=== PATIENT | female | born 1955 | race Caucasian/White ===

== ENCOUNTER 2020-08-13 17:36 | Emergency (ER) | payer OTHER, BC ==
[~2020-08-13] VITALS: Ht 165.1 cm; Wt 49.9 kg
[~2020-08-13 17:36] MED LIST: CEPH500 PO; HYDACE5 PO; LORA1 PO
== END 2020-08-13 20:08 | disposition home or self-care (01) ==
LOC: ER 17:36
DX: S01.01XA Laceration without foreign body of scalp, initial encounter (principal); S46.912A Strain of unspecified muscle, fascia and tendon at shoulder and upper arm level, left arm, initial encounter; Z23 Encounter for immunization; W01.198A Fall on same level from slipping, tripping and stumbling with subsequent striking against other object, initial encounter; Y93.89 Activity, other specified
CPT/HCPCS: 12005; 70450; 73030; 90471; 90714; 99284-25; A9270

== ENCOUNTER 2022-06-07 21:11 | Emergency (ER) | payer OTHER ==
[~2022-06-07] VITALS: Ht 167.6 cm; Wt 45.4 kg
== END 2022-06-07 23:39 | disposition home or self-care (01) ==
LOC: ER 21:11
DX: S00.81XA Abrasion of other part of head, initial encounter (principal); W01.0XXA Fall on same level from slipping, tripping and stumbling without subsequent striking against object, initial encounter; F10.129 Alcohol abuse with intoxication, unspecified; J40 Bronchitis, not specified as acute or chronic; F17.210 Nicotine dependence, cigarettes, uncomplicated
CPT/HCPCS: 70450; 71045; 94644; 94664

== ENCOUNTER 2022-11-23 08:42 | Day surgery (SDC) | payer OTHER ==
[2022-11-23] VITALS (13 sets, daily range): BP systolic 103–132; BP diastolic 64–103
[~2022-11-23] VITALS: Ht 165.1 cm; Wt 47.2 kg
--- NOTE | 2022-11-23 11:00 | NUR ---
History, Chart, Medications and Allergies reviewed before start of procedure. Patient confirms NPO status and agrees with scheduled surgery. Inspiratory wheezes auscultated t/o lungs. Patient denies SOB and states "I'm always wheezing." Will report this to Dr. Sheriff.
[2022-11-23] MEDS ORDERED: ALBU2.5V5 INH (11:02)
--- NOTE | 2022-11-23 11:13 | NUR ---
UNABLE TO WIPE SURGERY SITE WITH CHLORHEXIDINE DUE TO CAST. LLE ELEVATED ON PILLOW FOR COMFORT.
--- NOTE | 2022-11-23 12:04 | NUR ---
HINA COVARRUBIAS, AT BEDSIDE USING CAST CUTTER ON PATIENT'S CAST.
--- NOTE | 2022-11-23 15:59 | NUR ---
Patient up to Ambulate independently. Gait steady. Marj Paws warming gown applied. Discharge instructions reviewed with patient. Patient verbalizes understanding. Copy given to patient to take home.Lungs clear T/O to Auscultation. Patient States Post-Procedure ride home has been arranged. Discharged via wheelchair to private car for ride home.
== END 2022-11-23 16:02 | disposition home or self-care (01) ==
LOC: ORSCMMR 08:42 → ORD 11:00 → ORSCMMR 11:00
PROVIDERS: Orthopaedic Surgery
PROC: 0PSJ04Z Reposition Left Radius with Internal Fixation Device, Open Approach (ICD-10-PCS; principal; 2022-11-23 11:00)
DX: S52.572A Other intraarticular fracture of lower end of left radius, initial encounter for closed fracture (principal); F17.210 Nicotine dependence, cigarettes, uncomplicated; J44.9 Chronic obstructive pulmonary disease, unspecified; Z79.899 Other long term (current) drug therapy
CPT/HCPCS: A9270; C1713; J0690; J1100; J1885; J2250; J2405; J2704; J3010; J7120

== ENCOUNTER → 2024-07-11 | Outpatient (CLI) | payer OTHER ==
[~2024-07-11] MED LIST changes: +ALBU2.5V5 INH
[2024-07-11 09:26] LABS: BASOPHILS ABSOLUTE AUTO 0.04 K/mm3 (0.00-0.23); BASOPHILS PERCENT AUTO 0 % (0-2); EOSINOPHILS ABSOLUTE AUTO 0.12 K/mm3 (0.00-0.68); EOSINOPHILS PERCENT AUTO 1 % (0-6); Hematocrit 29.5 % (33.0-51.0); IMMATURE GRAN ABSOLUTE AUTO 0.09 K/mm3 (0.00-0.10); IMMATURE GRAN PERCENT AUTO 1 % (0-1); LYMPHOCYTES ABSOLUTE AUTO 1.82 K/mm3 (0.84-5.20); LYMPHOCYTES PERCENT AUTO 14 % (21-46); MONOCYTES ABSOLUTE AUTO 0.56 K/mm3 (0.16-1.47); MONOCYTES PERCENT AUTO 4 % (4-13); Mean Corpuscular HGB 31.6 pg (26.0-34.0); Mean Corpuscular HGB Conc 33.9 g/dL (31.5-36.5); Mean Corpuscular Volume 93 fL (80-100); Mean Platelet Volume 9.9 fL (9.1-12.4); NEUTROPHILS ABSOLUTE AUTO 10.51 K/mm3 (1.96-9.15); NEUTROPHILS PERCENT AUTO 80 % (41-73); NRBC ABSOLUTE 0.02 K/mm3 (0.00-0.02); NRBC Auto 0.2 /100 WBC (0.0-0.2); Platelet Count 355 K/mm3 (150-400); RDW Coefficient Variation 15.4 % (11.7-14.2); RDW Standard Deviation 51.9 fL (35.1-46.3); Red Blood Cell Count 3.16 M/mm3 (3.80-5.20); White Blood Cell Count 13.14 K/mm3 (4.00-11.30)
[2024-07-11 09:42] LABS: Albumin, Blood 1.6 g/dL (3.4-5.0); Albumin/Globulin Ratio 0.4 (0.8-1.8); Bilirubin, Total 1.9 mg/dL (0.1-1.0); Bun/Creatinine Ratio 9.5 (12.0-20.0); Creatinine, Blood 0.84 mg/dL (0.40-1.00); Globulin, Blood 4.2 g/dL (2.2-4.0); Magnesium, Blood 1.7 mg/dL (1.6-2.4); Phosphorus, Blood 3.2 mg/dL (2.5-4.9); Potassium, Blood 3.6 mmol/L (3.5-5.5); Total Protein, Blood 5.8 g/dL (6.4-8.2)
== END ==
LOC: LAB 09:22 → LAB SHORT 09:22
PROVIDERS: Family Medicine
DX: R00.0 Tachycardia, unspecified (principal); R21 Rash and other nonspecific skin eruption; R53.83 Other fatigue; N39.0 Urinary tract infection, site not specified
CPT/HCPCS: 80053; 83735; 84100; 84443; 84484; 85025; 87086

== ENCOUNTER 2024-10-09 15:48 | Emergency (ER) | payer OTHER ==
[~2024-10-09] VITALS: Ht 165.1 cm; Wt 37.2 kg
[2024-10-09] MEDS ORDERED: NS 1,000 ML IV SCH (16:30)
[2024-10-09 17:08] LABS: BASOPHILS ABSOLUTE AUTO 0.01 K/mm3 (0.00-0.23); BASOPHILS PERCENT AUTO 0 % (0-2); EOSINOPHILS ABSOLUTE AUTO 0.03 K/mm3 (0.00-0.68); EOSINOPHILS PERCENT AUTO 1 % (0-6); Hematocrit 29.9 % (33.0-51.0); Hemoglobin 10.3 g/dL (11.5-16.0); IMMATURE GRAN ABSOLUTE AUTO 0.02 K/mm3 (0.00-0.10); IMMATURE GRAN PERCENT AUTO 0 % (0-1); LYMPHOCYTES ABSOLUTE AUTO 2.12 K/mm3 (0.84-5.20); LYMPHOCYTES PERCENT AUTO 37 % (21-46); MONOCYTES ABSOLUTE AUTO 0.55 K/mm3 (0.16-1.47); MONOCYTES PERCENT AUTO 10 % (4-13); Mean Corpuscular HGB 30.9 pg (26.0-34.0); Mean Corpuscular HGB Conc 34.4 g/dL (31.5-36.5); Mean Corpuscular Volume 90 fL (80-100); Mean Platelet Volume 9.5 fL (9.1-12.4); NEUTROPHILS ABSOLUTE AUTO 2.95 K/mm3 (1.96-9.15); NEUTROPHILS PERCENT AUTO 52 % (41-73); Platelet Count 343 K/mm3 (150-400); RDW Coefficient Variation 16.5 % (11.7-14.2); RDW Standard Deviation 53.9 fL (35.1-46.3); Red Blood Cell Count 3.33 M/mm3 (3.80-5.20); White Blood Cell Count 5.68 K/mm3 (4.00-11.30)
[2024-10-09 17:42] LABS: Albumin, Blood 1.8 g/dL (3.4-5.0); Albumin/Globulin Ratio 0.5 (0.8-1.8); Bilirubin, Total 1.8 mg/dL (0.1-1.0); Bun/Creatinine Ratio 7.9 (12.0-20.0); Calcium, Blood 7.5 mg/dL (8.5-10.1); Creatinine, Blood 0.63 mg/dL (0.40-1.00); Globulin, Blood 3.7 g/dL (2.2-4.0); Potassium, Blood 2.2 mmol/L (3.5-5.5); Total Protein, Blood 5.5 g/dL (6.4-8.2)
[2024-10-09 17:43] LABS: Magnesium, Blood 1.6 mg/dL (1.6-2.4); Phosphorus, Blood 2.9 mg/dL (2.5-4.9)
[2024-10-09] MEDS ORDERED: Potassium Chloride 20 MEQ TabCR PO ONE (17:50)
[2024-10-09] MEDS ORDERED: Potassium Acetate 20 MEQ in NS 100 ML IV SCH (17:50)
[2024-10-09] MEDS ORDERED: Magnesium Oxide 400 MG Tab PO ONE (17:50)
[2024-10-09] MEDS ORDERED: K-Dur10 MEQ (17:54)
[2024-10-09] MEDS ORDERED: PRAMIPEXOLE0.125 M1 PO (17:54)
[2024-10-09] MEDS ORDERED: Cipro500 MG PO (17:54)
[2024-10-09] MEDS ORDERED: ONDANSETRON ODT16 MG PO (17:55)
[2024-10-09] MEDS ORDERED: TRAM50 PO (17:55)
[2024-10-09] MEDS ORDERED: Atarax10 MG PO (17:55)
[2024-10-09] MEDS ORDERED: OMEP20ER PO (17:58)
[2024-10-09] MEDS ORDERED: Potassium Chloride 40 MEQ in NS 250 ML IV STA (18:10)
[2024-10-09] MEDS ORDERED: TraMADol HCl 50 MG Tab PO ONE (18:55)
[2024-10-09 23:00] VITALS: BP 97/56
[2024-10-09 23:22] LABS: Bun/Creatinine Ratio 9.5 (12.0-20.0); Calcium, Blood 6.7 mg/dL (8.5-10.1); Creatinine, Blood 0.53 mg/dL (0.40-1.00); Potassium, Blood 3.7 mmol/L (3.5-5.5)
== END 2024-10-09 23:56 | disposition home or self-care (01) ==
LOC: ER 15:48
PROVIDERS: Emergency Medicine; Physician Assistant
DX: E87.6 Hypokalemia (principal); J44.9 Chronic obstructive pulmonary disease, unspecified; F17.210 Nicotine dependence, cigarettes, uncomplicated; R74.8 Abnormal levels of other serum enzymes
CPT/HCPCS: 36415; 80048; 80053; 80074; 82103; 82390; 83735; 84100; 85025; 86015; 86038; 86256; 86381; 93005; 93010; 96365; 96366; 99285-25; A9270; J3480; J7030; J7050

== ENCOUNTER 2024-10-12 08:00 | Day surgery (SDC) | payer OTHER ==
[~2024-10-12] VITALS: Ht 165.1 cm; Wt 37.2 kg
[~2024-10-12 08:00] MED LIST changes: +Atarax10 MG PO; +Cipro500 MG PO; +K-Dur10 MEQ; +Lactated Ringer's 1,000 ML IV ONE; +OMEP20ER PO; +ONDANSETRON ODT16 MG PO; +PRAMIPEXOLE0.125 M1 PO; +TRAM50 PO
[2024-10-12] MEDS ORDERED: propofoL 50 ML IV ONE (08:22)
[2024-10-12] MEDS ORDERED: Lidocaine HCl 4% 5 ML SDA ONE (08:22)
[2024-10-12] MEDS ORDERED: MAGCIT300 (08:39)
[2024-10-12] MEDS ORDERED: Lactated Ringer's 1,000 ML IV ONE (09:10)
[2024-10-12 10:54] VITALS: BP 128/76
== END 2024-10-12 11:02 | disposition home or self-care (01) ==
LOC: ORSCSDS 08:00
PROVIDERS: Internal Medicine Gastroenterology
PROC: 0D757ZZ Dilation of Esophagus, Via Natural or Artificial Opening (ICD-10-PCS; principal; 2024-10-12 09:30)
PROC: 0DB38ZX Excision of Lower Esophagus, Via Natural or Artificial Opening Endoscopic, Diagnostic (ICD-10-PCS; principal; 2024-10-12 09:30)
PROC: 0DB68ZX Excision of Stomach, Via Natural or Artificial Opening Endoscopic, Diagnostic (ICD-10-PCS; principal; 2024-10-12 09:30)
DX: R13.10 Dysphagia, unspecified (principal); B96.81 Helicobacter pylori [H. pylori] as the cause of diseases classified elsewhere; J44.9 Chronic obstructive pulmonary disease, unspecified; K22.2 Esophageal obstruction; F17.210 Nicotine dependence, cigarettes, uncomplicated; Z79.899 Other long term (current) drug therapy
CPT/HCPCS: 88305; 88342; J2003; J2704; J7120

== ENCOUNTER 2024-11-01 12:49 | Day surgery (SDC) | payer OTHER ==
[~2024-11-01] VITALS: Ht 165.1 cm; Wt 36.7 kg
[~2024-11-01 12:49] MED LIST changes: +MAGCIT300
[2024-11-01] MEDS ORDERED: METR500 (13:31)
[2024-11-01] MEDS ORDERED: BISMUTH SUBSAL (13:31)
[2024-11-01] MEDS ORDERED: Tetracycline H500 MG (13:32)
[2024-11-01] MEDS ORDERED: OMEP20ER (13:33)
[2024-11-01] MEDS ORDERED: Lactated Ringer's 1,000 ML IV ONE (14:57)
[2024-11-01] MEDS ORDERED: Phenylephrine HCl 10mg/ml 1 ml Vial ONE (15:25)
[2024-11-01] MEDS ORDERED: propofoL 50 ML IV ONE ×2 (15:26→15:49)
[2024-11-01 16:58] VITALS: BP 94/70
== END 2024-11-01 16:55 | disposition home or self-care (01) ==
LOC: ORSCSDS 12:49
PROVIDERS: Internal Medicine Gastroenterology
PROC: 0DBL8ZX Excision of Transverse Colon, Via Natural or Artificial Opening Endoscopic, Diagnostic (ICD-10-PCS; principal; 2024-11-01 15:15)
PROC: 0DBN8ZX Excision of Sigmoid Colon, Via Natural or Artificial Opening Endoscopic, Diagnostic (ICD-10-PCS; principal; 2024-11-01 15:15)
PROC: 0DBH8ZX Excision of Cecum, Via Natural or Artificial Opening Endoscopic, Diagnostic (ICD-10-PCS; principal; 2024-11-01 15:15)
PROC: 0DBM8ZX Excision of Descending Colon, Via Natural or Artificial Opening Endoscopic, Diagnostic (ICD-10-PCS; principal; 2024-11-01 15:15)
DX: D50.9 Iron deficiency anemia, unspecified (principal); R63.4 Abnormal weight loss; D12.3 Benign neoplasm of transverse colon; D12.4 Benign neoplasm of descending colon; D12.5 Benign neoplasm of sigmoid colon; K64.4 Residual hemorrhoidal skin tags; D37.4 Neoplasm of uncertain behavior of colon; J44.9 Chronic obstructive pulmonary disease, unspecified; F17.210 Nicotine dependence, cigarettes, uncomplicated; K21.9 Gastro-esophageal reflux disease without esophagitis; Z79.899 Other long term (current) drug therapy
CPT/HCPCS: 88305; J2371; J2704; J7120

== ENCOUNTER 2024-11-06 14:51 | Emergency (ER) | payer OTHER ==
[~2024-11-06] VITALS: Ht 165.1 cm; Wt 36.3 kg
[~2024-11-06 14:51] MED LIST changes: +BISMUTH SUBSAL; -Lactated Ringer's 1,000 ML IV ONE; +METR500; +OMEP20ER; +Tetracycline H500 MG
[2024-11-06] MEDS ORDERED: NS 1,000 ML IV SCH (15:15)
[2024-11-06 15:28] LABS: BASOPHILS PERCENT AUTO 0 % (0-2); EOSINOPHILS PERCENT AUTO 0 % (0-6); Hematocrit 27.2 % (33.0-51.0); Hemoglobin 9.2 g/dL (11.5-16.0); IMMATURE GRAN ABSOLUTE AUTO 0.02 K/mm3 (0.00-0.10); IMMATURE GRAN PERCENT AUTO 0 % (0-1); LYMPHOCYTES ABSOLUTE AUTO 0.83 K/mm3 (0.84-5.20); LYMPHOCYTES PERCENT AUTO 18 % (21-46); MONOCYTES ABSOLUTE AUTO 0.38 K/mm3 (0.16-1.47); MONOCYTES PERCENT AUTO 8 % (4-13); Mean Corpuscular HGB 31.3 pg (26.0-34.0); Mean Corpuscular HGB Conc 33.8 g/dL (31.5-36.5); Mean Corpuscular Volume 93 fL (80-100); Mean Platelet Volume 12.4 fL (9.1-12.4); NEUTROPHILS PERCENT AUTO 74 % (41-73); NRBC ABSOLUTE 0.04 K/mm3 (0.00-0.02); NRBC Auto 0.9 /100 WBC (0.0-0.2); Platelet Count 133 K/mm3 (150-400); RDW Coefficient Variation 17.3 % (11.7-14.2); RDW Standard Deviation 58.1 fL (35.1-46.3); Red Blood Cell Count 2.94 M/mm3 (3.80-5.20); White Blood Cell Count 4.63 K/mm3 (4.00-11.30)
[2024-11-06 16:16] LABS: Source, Urine Straight Cath
[2024-11-06 16:22] LABS: Albumin, Blood 1.8 g/dL (3.4-5.0); Albumin/Globulin Ratio 0.6 (0.8-1.8); Bilirubin, Total 2.2 mg/dL (0.1-1.0); Bun/Creatinine Ratio 12.1 (12.0-20.0); Calcium, Blood 8.5 mg/dL (8.5-10.1); Creatinine, Blood 0.5 mg/dL (0.40-1.00); Globulin, Blood 3.2 g/dL (2.2-4.0); Potassium, Blood 3.2 mmol/L (3.5-5.5)
[2024-11-06 16:23] LABS: Appearance, Urine Clear (Clear); Bilirubin, Urine Neg (Neg); Blood, Urine 2+ (Neg); Color, Urine Amber (P-Yellow); Glucose Qualitative, Urine 4+ (Neg); Ketones, Urine Neg (Neg); Leukocyte Esterase, Urine 1+ (Neg); Nitrite, Urine Neg (Neg); Protein, Urine 1+ (Neg); Specific Gravity, Urine 1.015 (1.003-1.022); Urobilinogen, Urine NORM (Normal)
[2024-11-06 16:40] LABS: Amorphous Light (0-Heavy); Bacteria Few /hpf; Squamous Epithelial Cells Few /hpf (Few)
[2024-11-06 16:41] LABS: Calcium Oxalate Crystals Rare /hpf; Transitional Epithelial Cells Rare /hpf (0-Rare)
[2024-11-06 17:01] VITALS: BP 99/72
== END 2024-11-06 18:40 | disposition home or self-care (01) ==
LOC: ER 14:51
PROVIDERS: Emergency Medicine
DX: R44.1 Visual hallucinations (principal); E86.0 Dehydration; J44.9 Chronic obstructive pulmonary disease, unspecified; F17.210 Nicotine dependence, cigarettes, uncomplicated; Z79.899 Other long term (current) drug therapy
CPT/HCPCS: 70450; 80053; 81001; 85025; 87086; 93005; 93010; 96360; 99285-25; J7030; P9612

== ENCOUNTER 2024-11-08 14:15 | Observation (INO) | payer OTHER ==
[~2024-11-08] VITALS: Ht 165.1 cm; Wt 45.4 kg
[2024-11-08 15:39] LABS: BASOPHILS PERCENT AUTO 0 % (0-2); EOSINOPHILS PERCENT AUTO 0 % (0-6); Hematocrit 26.3 % (33.0-51.0); Hemoglobin 9.2 g/dL (11.5-16.0); IMMATURE GRAN ABSOLUTE AUTO 0.01 K/mm3 (0.00-0.10); IMMATURE GRAN PERCENT AUTO 0 % (0-1); LYMPHOCYTES ABSOLUTE AUTO 0.81 K/mm3 (0.84-5.20); LYMPHOCYTES PERCENT AUTO 18 % (21-46); MONOCYTES PERCENT AUTO 11 % (4-13); Mean Corpuscular HGB 32.2 pg (26.0-34.0); Mean Corpuscular Volume 92 fL (80-100); Mean Platelet Volume 12.1 fL (9.1-12.4); NEUTROPHILS ABSOLUTE AUTO 3.15 K/mm3 (1.96-9.15); NEUTROPHILS PERCENT AUTO 71 % (41-73); NRBC ABSOLUTE 0.05 K/mm3 (0.00-0.02); NRBC Auto 1.1 /100 WBC (0.0-0.2); Platelet Count 131 K/mm3 (150-400); RDW Coefficient Variation 17.7 % (11.7-14.2); Red Blood Cell Count 2.86 M/mm3 (3.80-5.20); White Blood Cell Count 4.47 K/mm3 (4.00-11.30)
[2024-11-08 15:55] LABS: Albumin, Blood 1.7 g/dL (3.4-5.0); Albumin/Globulin Ratio 0.5 (0.8-1.8); Bilirubin, Total 2.4 mg/dL (0.1-1.0); Bun/Creatinine Ratio 14.4 (12.0-20.0); Calcium, Blood 8.4 mg/dL (8.5-10.1); Creatinine, Blood 0.62 mg/dL (0.40-1.00); Globulin, Blood 3.2 g/dL (2.2-4.0); Total Protein, Blood 4.9 g/dL (6.4-8.2)
[2024-11-08 17:49] LABS: Source, Urine Clean Catch
[2024-11-08 17:59] LABS: Blood, Urine 1+ (Neg); Color, Urine Brown (P-Yellow); Glucose Qualitative, Urine Neg (Neg); Ketones, Urine 1+ (Neg); Leukocyte Esterase, Urine 1+ (Neg); Nitrite, Urine Pos (Neg); Protein, Urine 2+ (Neg); Specific Gravity, Urine 1.025 (1.003-1.022); Urobilinogen, Urine 1+ (Normal)
[2024-11-08] MEDS ORDERED: Morphine Sulfate 4 MG/1 ML Injection IV PRN (18:05)
[2024-11-08] MEDS ORDERED: Lactated Ringer's 1,000 ML IV SCH (18:05)
[2024-11-08] MEDS ORDERED: Ondansetron HCl 2 MG / ML 2ML Vial IV PRN (18:05)
[2024-11-08] MEDS ORDERED: Potassium Chl 20MEQ/Water100ML 100 ML IV SCH (18:10)
[2024-11-08] MEDS ORDERED: Magnesium Sulf 2 GM/Water 50ML 50 ML IV ONE (18:10)
[2024-11-08 18:15] LABS: Appearance, Urine Hazy (Clear); Bilirubin, Urine 2+ (Neg)
[2024-11-08 18:16] LABS: Bacteria Mod /hpf; Calcium Oxalate Crystals Many /hpf; Red Blood Cells, Urine 0-2 /hpf (0-2); Squamous Epithelial Cells Few /hpf (Few); Yeast/Fungi Urine Mod /hpf
[2024-11-08] MEDS ORDERED: NS 1,000 ML IV ONE (19:00)
[2024-11-08] MEDS ORDERED: Morphine Sulfate 4 MG/1 ML Injection IV ONE (19:00)
[2024-11-08] MEDS ORDERED: Heparin Sodium,Porcine 5,000 UNIT/0.5 ML SDV SC SCH (21:00)
[2024-11-08 22:55] VITALS: BP 92/67
[2024-11-09] MEDS ORDERED: CefTRIAXone Sodium 1,000 MG in NS 100 ML IV SCH (00:10)
[2024-11-09 04:31] VITALS: BP 92/65
--- NOTE | 2024-11-09 04:45 | NUR ---
SHIFT SUMMARY ADMITTED THIS SHIFT FOR TOXIC METABOLIC ENCEPHALOPATHY. FULL CODE. IV ANTIB RX ARE SCHEDULED. SHE DOES HAVE A UTI. SHE IS DEHYDRATED, IV FLUIDS INFUSING AND ELECTROLYTES GIVEN. TELEMETRY: NSR @ [address], TEA COLORED URINE. SHE IS A&O TO SELF, POSSIBLY FAMILY. SHE SPEAKS A GARBLED WORD OR TWO BUT SHE IS CONFUSED & HALLUCINATING. PLAN IS FOR AN MRI OF THE HEAD. SHE IS QUITE FRAIL AND FRAGILE IN APPEARANCE. SEVERE WEAKNESS NOTED. SHE IS ON BEDREST. PALLIATIVE CARE IS CONSULTED. HX: ETOH ABUSE, FATTY LIVER. FAMILY IS AT BEDSIDE.
[2024-11-09] MEDS ORDERED: Pantoprazole Sodium 40 MG Injection IV SCH (06:00)
[2024-11-09 07:51] VITALS: BP 92/63
[2024-11-09] MEDS ORDERED: Potassium Chl 20MEQ/Water100ML 100 ML IV SCH (08:00)
[2024-11-09] MEDS ORDERED: Thiamine HCl 100 MG in NS 50 ML IV SCH (09:00)
[2024-11-09 09:21] LABS: BASOPHILS PERCENT AUTO 0 % (0-2); EOSINOPHILS ABSOLUTE AUTO 0.01 K/mm3 (0.00-0.68); EOSINOPHILS PERCENT AUTO 0 % (0-6); Hematocrit 28.3 % (33.0-51.0); Hemoglobin 9.5 g/dL (11.5-16.0); IMMATURE GRAN ABSOLUTE AUTO 0.02 K/mm3 (0.00-0.10); IMMATURE GRAN PERCENT AUTO 0 % (0-1); LYMPHOCYTES ABSOLUTE AUTO 1.26 K/mm3 (0.84-5.20); LYMPHOCYTES PERCENT AUTO 26 % (21-46); MONOCYTES ABSOLUTE AUTO 0.62 K/mm3 (0.16-1.47); MONOCYTES PERCENT AUTO 13 % (4-13); Mean Corpuscular HGB 31.8 pg (26.0-34.0); Mean Corpuscular HGB Conc 33.6 g/dL (31.5-36.5); Mean Corpuscular Volume 95 fL (80-100); Mean Platelet Volume 12.4 fL (9.1-12.4); NEUTROPHILS PERCENT AUTO 61 % (41-73); NRBC ABSOLUTE 0.03 K/mm3 (0.00-0.02); NRBC Auto 0.6 /100 WBC (0.0-0.2); Platelet Count 118 K/mm3 (150-400); RDW Coefficient Variation 18.3 % (11.7-14.2); RDW Standard Deviation 60.7 fL (35.1-46.3); Red Blood Cell Count 2.99 M/mm3 (3.80-5.20); White Blood Cell Count 4.91 K/mm3 (4.00-11.30)
[2024-11-09 09:43] LABS: Albumin, Blood 1.8 g/dL (3.4-5.0); Albumin/Globulin Ratio 0.6 (0.8-1.8); Bun/Creatinine Ratio 14.9 (12.0-20.0); Calcium, Blood 8.6 mg/dL (8.5-10.1); Creatinine, Blood 0.61 mg/dL (0.40-1.00); Globulin, Blood 3.2 g/dL (2.2-4.0); Potassium, Blood 3.6 mmol/L (3.5-5.5)
[2024-11-09 09:46] LABS: Magnesium, Blood 2.4 mg/dL (1.6-2.4); Percent Saturation 17.3 % (15.0-50.0)
[2024-11-09 12:18] VITALS: BP 79/58
[2024-11-09] MEDS ORDERED: LORazepam 1 MG Tab PO PRN (13:00)
[2024-11-09] MEDS ORDERED: Morphine Sulfate 20 MG/1ML 1 ML Oral Syringe SL PRN (13:00)
[2024-11-09] MEDS ORDERED: Scopolamine Hydrobromide Patch TOP PRN (13:05)
[2024-11-09] MEDS ORDERED: Atropine Sulfate 1% Opth Soln 2ML BTL SL PRN (13:05)
[2024-11-09] MEDS ORDERED: Haloperidol Lactate 2 MG / ML 15ML BTL PO PRN (13:05)
[2024-11-09] MEDS ORDERED: Acetaminophen 160MG / 5ML 10.15 UDC PO PRN (13:05)
[2024-11-09] MEDS ORDERED: Acetaminophen 650 MG Supp PR PRN (13:05)
[2024-11-09] MEDS ORDERED: Promethazine HCl 25 MG Tab PO PRN (13:05)
--- NOTE | 2024-11-09 13:13 | NUR ---
PALLIATIVE CARE NOTE: MET WITH FAMILY, SPOUSE DON AND SOFIE IN ROOM. PT IS IN BED, SHE IS MOANING OFF AND ON. PT ABLE TO ABSWER SOME QUESTIONS AND OTHERS SHE IS NOT. SHE DOES STATE MULTIPLE TIMES "PLEASE JUST LET ME GO HOME". PT IS SEVERELY CACHECTIC AND FRAIL IN APPEARANCE. SHE HAS SORES ON HER ARM. HER SKIN APPEARS VERY DRY. PT HAS LOST HER IV AND SHE HAS SBP IN 70'S. DISCUSSED CONCERNS PT MAY NEED CPR WITH FAMILY. DISCUSSED RISKS VS BENEFITS OF CPR INCLUDING HIGH RISK OF FRACTURED RIBS. SPOUSE STATES "I DON'T WANT THAT TO HAPPEN TO HER". SOFIE STATED HER MOM DID NOT WANT CPR IN THE PAST. DISCUSSED DNR STATUS AND FAMILY AGREE TO MAKE DNR. DISCUSSED PEG TUBE VS NG TUBE. SPOUSE STATED HIS WOULD NOT WANT A PERMANENT FEEDING TUBE OR BE ON A VENTILATOR IF SHE COULD NOT COME OFF OF IT. DISCUSSED AT THIS TIME COMFORT MEASURES VS FULL TREATMENT. SPOUSE IS AGREEABLE TO COMFORT CARE WITH GOAL TO TAKE HIS HOME WITH HOSPICE. SPOKE TO DR. ALEXANDER REGARDING ABOVE CONVERSATION. HE IS AGREEABLE TO COMFORT CARE. PRIMARY RN AWARE, UPDATED CM. DR. ALEXANDER TO PLACE COMFORT CARE ORDERS/DNR STATUS.
--- NOTE | 2024-11-09 20:09 | NUR ---
SHIFT SUMMARY- PT TRANSITIONED TO CC. PT MOANING AND UNCOMFORTABLE BUT CEARLY SAYS NO TO OFFERED MEDICATION. SHE TOOK ONE DOSE OF PAIN MEDICATION EARLIER IN THE DAY. AT THE END OF THE SHIFT THE PT WAS VERY RESTLESS AND THE DAUGHTER REQUESTED MEDICATION. PT MEDICATED WITH ATIVAN AND ROXINOL, PER THE REQUEST OF FAMILY AND RN DETERMINED NEED, PT WILLINGLY TOOK THE MEDICATION WHILE SAYING NO, PT SAYS NO TO ANYTHING STAFF SAY. SHE MAY NEED A LARGER DOSE THAN WHAT WAS USED, SOME IMPROVEMENT WAS SEEN. REPORT WAS COMPLETED AT THE BEDSIDE WITH THE NIGHT RN, SHE IS AWARE THE PT MAY NEED MORE ATIVAN AND ROXINOL.
--- NOTE | 2024-11-10 05:50 | NUR ---
SHIFT SUMMARY PT ON COMFORT CARE. AT BEDSIDE THROUGHOUT THE SHIFT WITH MULTIPLE OTHER FAMILY MEMBERS COMING TO VISIT DURING THE EVENING. PT MEDICATED WITH ROXANOL AND ATIVAN PER EMAR. PT MOSTLY RESTING WITH EYES CLOSED, MOANS ON OCCASSIONS. MEDICATED FOR INCREASED AGITATED ACTIVITY AND FACE PAIN SCALE. PT'S FAMILY ASSISTING WITH PHYSICAL CARE OF PT. PT BEGINNING TO HAVE SOME APNIC EPISODES. PLAN TO TRANSITION TO HOME HOSPICE TODAY.
[2024-11-10] MEDS ORDERED: Pramipexole DI-HCL 0.125 MG Tab PO SCH (09:00)
[2024-11-10] MEDS ORDERED: MORP20L SL (09:56)
[2024-11-10] MEDS ORDERED: ACET120S PR (09:59)
[2024-11-10] MEDS ORDERED: ACETAMINOP160 MG/51 PO (10:01)
[2024-11-10] MEDS ORDERED: ATROPINE SULFATE2 M1 SL (10:01)
[2024-11-10] MEDS ORDERED: HALOPERIDOL2 MG/1 M1 PO (10:02)
[2024-11-10] MEDS ORDERED: LORA1 PO (10:03)
[2024-11-10] MEDS ORDERED: PROM25 PO (10:03)
[2024-11-10] MEDS ORDERED: TRANSDERM-SCOP1 EA13 TD (10:04)
--- NOTE | 2024-11-10 12:28 | NUR ---
PT DISCHARGED HOME TO HOSPICE WITH FAMILY. PT MEDICATED PER EMAR PRIOR TO DC, EDUCATION PROVIDED TO FAMILY, ALL BELONGINGS WITH PT FAMILY.
== END 2024-11-10 11:53 | disposition hospice, home (50) ==
LOC: ER 14:15 → ERHOLD 14:16 → MEDS 14:16 → ENPENDDIS 11-10 11:36 → MEDS 11-10 11:53
PROVIDERS: Student in an Organized Health Care Education/Training Program; ADMIT Internal Medicine
DX: G93.49 Other encephalopathy (principal); N39.0 Urinary tract infection, site not specified; R53.1 Weakness; R47.1 Dysarthria and anarthria; E87.6 Hypokalemia; K70.0 Alcoholic fatty liver; D64.9 Anemia, unspecified; E43 Unspecified severe protein-calorie malnutrition; Z68.1 Body mass index [BMI] 19.9 or less, adult; J44.9 Chronic obstructive pulmonary disease, unspecified; K21.9 Gastro-esophageal reflux disease without esophagitis; F17.210 Nicotine dependence, cigarettes, uncomplicated; Z79.899 Other long term (current) drug therapy
CPT/HCPCS: 36415; 51702; 70551; 80053; 81001; 82140; 82607; 82728; 82746; 83540; 83550; 83735; 84484; 85025; 87086; 92610; 93005; 93010; 96365; 96366; 96367; 96368; 96372; 96375; 96376; 97161; 99285-25; A9270; G0378; J0696; J1644; J2270; J2470; J3475; J3480; J7030; J7120